=== PATIENT | female | born 1960 | race Caucasian/White ===

== ENCOUNTER 2019-01-19 20:06 | Observation (INO) ==
[2019-01-19] MEDS ORDERED: ASPIRIN 81 MG (BABY) CHEWABLE TABLET PO ONE (20:17)
[2019-01-19] MEDS ORDERED: Sodium Chloride 0.9% 1,000 ML PRIMARY IV ONE (20:17)
[2019-01-19 20:29] LABS: BASOPHILS # (AUTO) 0.06 10*3/UL; EOSINOPHILS % (AUTO) 3.5 % (0-8); Hemoglobin [HGB] 13.5 g/dL (12.0-16.0); LYMPHOCYTES # (AUTO) 2.19 10*3/uL; MEAN CORPUSCULAR HGB CONC 34.6 g/dL (33-37); MEAN CORPUSCULAR VOLUME 89.7 FL (81-99); MONOCYTES # (AUTO) 0.42 10*3/UL (0.3-0.8); MONOCYTES % (AUTO) 7.3 % (5-15); NEUTROPHILS # (AUTO) 2.87 10*3/UL; NEUTROPHILS % (AUTO) 49.9 % (50-80); RED BLOOD COUNT 4.35 10^6/uL (4.20-5.40)
[2019-01-19 20:37] LABS: PLATELET MORPHOLOGY COMMENT NORMAL MORPHOLOGY (NORM); RBC MORPHOLOGY COMMENT NORMAL MORPHOLOGY (NORM); WBC MORPHOLOGY COMMENT NORMAL MORPHOLOGY (NORM)
[2019-01-19 20:40] LABS: BLOOD UREA NITROGEN 16 mg/dL (7-22); BUN/CREATININE RATIO 26.66 (6-20); SERUM ALBUMIN 4.7 g/dL (3.5-4.8)
--- NOTE | 2019-01-19 20:52 | DI ---
EXAM: XR Chest, 1 View CLINICAL HISTORY: ITS.REASON Chest Pain Physician Notes: Tech Comments: TECHNIQUE: Frontal view of the chest. COMPARISON: No relevant prior studies available. FINDINGS: Lungs: No consolidation. Pleural space: Unremarkable. No pneumothorax. Heart: Mild cardiomegaly. Mediastinum: Unremarkable. Bones/joints: No acute fracture. IMPRESSION: No acute cardiopulmonary disease.
--- NOTE | 2019-01-19 22:05 | PDOC ---
HPI - History of Present Illness History of Present Illness: This is a very nice 58-year-old female who started having some chest pain at rest she still rates it 310 describes it more like pressure and not sharp no shortness of breath and no radiation she says it feels like stress. Past Medical History Medical History: No medical issues Tobacco Use: Former Smoker In the Past 12 Months, Have Used or Abuse Any of the Following Substance: None Alcohol Use: None Medication / Allergies Home Medications: Home Medications Medication Instructions Recorded Confirmed Type Multivitamins W-Minerals 1 ea PO DAILY 08/05/10 01/19/19 History [Multivitamin] Ibuprofen [Advil] 200 mg PO PRN PRN 11/28/11 01/19/19 History [place]-3 Fatty Acids/Fish Oil [Fish 1 ea PO DAILY cap 10/27/13 01/19/19 History Oil 1,000 mg Capsule] Calcium/Magnesium/Vit D3 [Calcium 1 tab PO QD tab 10/25/15 01/19/19 History 500 mg Tablet] fexofenadine 180 mg tablet 180 mg PO DAILY PRN tab 08/22/17 01/19/19 History coenzyme Q10 100 mg capsule 100 mg PO QDAY 03/04/18 01/19/19 History losartan 50 mg tablet 50 mg PO DAILY #90 tab 03/04/18 01/19/19 Rx lactobacillus combination no.9 4 4,000 mmu cells PO QDAY 06/06/18 01/19/19 History billion cell capsule azelastine 137 mcg (0.1 %) nasal 1 spray INASL BID #30 ml 12/04/18 01/19/19 Rx spray aerosol diazepam 5 mg tablet 5 mg PO ONCE #1 tab 12/04/18 01/19/19 Rx Allergies/Adverse Reactions: Allergies Allergy/AdvReac Type Severity Reaction Status Date / Time Sulfa (Sulfonamide Allergy Intermediate FLUSHING Verified 01/19/19 21:30 Antibiotics) sulfamethoxazole AdvReac Mild .SICK Verified 01/19/19 21:30 [From Bactrim] FEELING trimethoprim [From Bactrim] AdvReac Mild .SICK Verified 01/19/19 21:30 FEELING Review of Systems - Cardiovascular Cardiovascular: REPORTS: Chest Pain - Gastrointestinal Gastrointestinal / Abdominal: DENIES: Negative System Review, Nausea, Vomiting, Diarrhea, Constipation, Abdominal Pain, Bloody Stool, Poor Appetite, Heartburn, Regurgitation, Bloating, Lactose Intolerance, Melena, Bright Red Blood per Rectum, Other, See HPI Exam - General General Appearance: No Acute Distress, Cooperative - Respiratory Respiratory Exam: POSITIVE: Clear to Auscultation - Bilaterally, Breathing Non Labored, Normal To Percussion, Normal to Percussion and Palpation - Cardiovascular Cardiovascular Exam: POSITIVE: RRR, No Murmur, No Clicks, No Gallops, No Rubs, PMI Non-Displaced - GI/Abdominal GI/Abdominal Exam: POSITIVE: Normal Bowel Sounds, Non Tender, Non Distended, Soft, No Masses, No Hepatomegaly, No Splenomegaly, No Organomegaly - Extremities Extremities Exam: POSITIVE: No Clubbing Present, No Edema Present, No Cyanosis Present Results - Labs CBC and BMP: 01/19/19 20:18 01/19/19 20:18 Assessment and Plan - Patient Problems (1) Chest pain Current Visit: Yes Status: Acute Comment: Chest pain gave her sublingual nitroglycerin did not help much also gave half milligram of Ativan for her anxiety. Ordered chemical stress test if rules out Code(s): R07.9 - Chest pain, unspecified
[2019-01-19] MEDS ORDERED: CALCIUM CARBONATE 500 MG (TUMS) CHEWABLE TABLET PO PRN (22:23)
[2019-01-19] MEDS ORDERED: MORPHINE SULFATE 2 MG/1 ML IV PRN (22:23)
[2019-01-19] MEDS ORDERED: NITROGLYCERIN 0.4 MG SL TAB (BOTTLE OF 3) SL PRN (22:23)
[2019-01-19] MEDS ORDERED: LIDOCAINE W/ SODIUM BICARB 0.5 ML SYR SUBD PRN (22:23)
[2019-01-19 23:09] LABS: AMPHETAMINE SCREEN NEGATIVE (NEG); CANNABINOID SCREEN,URINE NEGATIVE (NEG); COCAINE SCREEN NEGATIVE (NEG); METHADONE URINE SCREEN NEGATIVE (NEG); METHAMPHETAMINES SCREEN,URINE NEGATIVE (NEG); OPIATE SCREEN,URINE NEGATIVE (NEG); URINE SAMPLE TYPE VOIDED SPECIMEN; URINE SPECIFIC GRAVITY - MAN 1.008
[2019-01-19] MEDS ORDERED: LORazepam 2 MG/1 ML VIAL IVP ONE (23:27)
[2019-01-20 02:44] LABS: BLOOD UREA NITROGEN 16 mg/dL (7-22); CHOL/HDL RATIO 5.43 RATIO (0-4.0); SERUM ALBUMIN 3.8 g/dL (3.5-4.8); SERUM CHOLESTEROL 174 mg/dL (120-200)
--- NOTE | 2019-01-20 05:10 | PDOC ---
Chest Pain HPI - General Chief Complaint: Chest Pain Stated Complaint: Chest Pain Date Seen by Provider: 01/19/19 Time Seen by Provider: 20:15 Source: Patient, Spouse Exam Limitations: POSITIVE: No limitations Treatment Prior to Arrival: REPORTS: None Nurse's Notes Reviewed & Considered: Yes - History of Present Illness Initial Comments: The patient is a 58-year-old female. She states that for the past 2 days she has been having episodes of "tightness "mid anterior thorax and just right of the sternum. She states the episodes last about 2 hours. She states the episodes are relieved by rest. She rates the intensity of the pain as 5 had a scale of 10. No shortness of breath. No cough or fevers. Patient did take 3 baby aspirin prior to coming to the emergency room. No known history of heart disease; she states she does have a history of hypertension. Body Location Affected: REPORTS: Chest Timing: REPORTS: Intermittent Duration: >24 hours (2 days) Severity: Moderate Persistent/Worse since (date): 01/26/19 Persistent/Worse since (time): 18:00 Context: REPORTS: Rest Quality: REPORTS: Aching, Pressure Radiation: REPORTS: None Associated Symptoms: DENIES: Nausea, Vomiting, Diaphoresis, Shortness of Breath, Hurts to Breathe, Palpitations, Productive Cough (blood), Productive Cough (sputum), Weakness, Dizziness Modifying Factors: improves with: None Reported Similar Symptoms Previously: No Recently seen/treated/hospitalized: No Any Prior Injuries Related to Current Complaint?: No - Patient Home Medications Home Medications: Home Medications Multivitamins W-Minerals [Multivitamin] 1 ea PO DAILY 08/05/10 Ibuprofen [Advil] 200 mg PO PRN PRN 11/28/11 [place]-3 Fatty Acids/Fish Oil [Fish Oil 1,000 mg Capsule] 1 ea PO DAILY cap 10/27/13 Calcium/Magnesium/Vit D3 [Calcium 500 mg Tablet] 1 tab PO QD tab 10/25/15 fexofenadine 180 mg tablet 180 mg PO DAILY PRN tab 08/22/17 coenzyme Q10 100 mg capsule 100 mg PO QDAY 03/04/18 losartan 50 mg tablet 50 mg PO DAILY #90 tab 03/04/18 lactobacillus combination no.9 4 billion cell capsule 4,000 mmu cells PO QDAY 06/06/18 azelastine 137 mcg (0.1 %) nasal spray aerosol 1 spray INASL BID #30 ml 12/04/18 diazepam 5 mg tablet 5 mg PO ONCE #1 tab 12/04/18 - Patient Allergies Allergies/Adverse Reactions: Allergies Allergy/AdvReac Type Severity Reaction Status Date / Time Sulfa (Sulfonamide Allergy Intermediate FLUSHING Verified 01/19/19 21:30 Antibiotics) sulfamethoxazole AdvReac Mild .SICK Verified 01/19/19 21:30 [From Bactrim] FEELING trimethoprim [From Bactrim] AdvReac Mild .SICK Verified 01/19/19 21:30 FEELING Past Medical History - heen HEENT History: Denies History, Dentures/Partials Additional HEENT History: partial but permanent Cardiovascular History: Hypertension, Other (please comment) Additional Cardiovasular History: murmur Respiratory History: Denies History Gastrointestinal History: Diverticulitis Genitourinary History: Denies History Endocrine History: Denies History Musculoskeletal History: Joint Pain Prosthesis or Implant: Yes (left uni) Additional Musculoskeletal History: right middle finger-numb and left is starting to have the same thing, scheduled for surgery in a month Neurological History: Denies History Blood Disorders: Denies History Psychiatric History: Denies History, Anxiety Disorders History of Sexually Transmitted Diseases: No Female Reproductive History: Denies History Obstetrical History: Denies History Cancer History: Denies History In Past Year Been Physically Harmed or Verbally Threatened: No History of MDRO: Unknown History of Other Communicable Diseases: No Tobacco Use: Former Smoker Alcohol Use: Occasionally In the Past 12 Months, Have Used or Abuse Any Substance: None Previous Surgical History: Yes Type / Date of Surgery: total hysterecomy. colonoscopy-several. LEFT PARTIAL KNEE Anesthesia Reactions: No Malignant Hyperthermia: No Significant Family History: No pertinent family hx Past Medical History Reviewed: Reviewed - No Changes ROS - Limitations ROS Limitations: No Limitations Constitution: REPORTS: Denies Symptoms Cardiovascular: REPORTS: Chest Pain Respiratory: REPORTS: Denies Resp Symptoms Neurological: REPORTS: Denies Neuro Symptoms Gastrointestinal: REPORTS: Denies GI Symptoms Endocrine: REPORTS: Denies Symptoms Musculoskeletal: REPORTS: Denies MS Symptoms Genitourinary: REPORTS: Denies Symptoms Eyes: REPORTS: Denies Symptoms ENT: REPORTS: Denies Symptoms Skin: REPORTS: Denies Skin Symptoms Lympathic: REPORTS: Denies Lympathic Symptoms Immunologic: POSITIVE: Denies Symptoms Psychiatric: POSITIVE: Denies Psych Symptoms Chest Pain PE - General Appearance General Appearance: REPORTS: Alert, Cooperative, No Acute Distress, No Evidence of Trauma - HEENT HEENT: POSITIVE: Head Inspection Nml, Eyes Inspection Nml, Ears Inspection Nml, Nose Inspection Nml, Oral/Dental Inspect. Nml, Pharynx Inspect. Nml, PERRL, EOMI - Neck Neck: REPORTS: Normal Inspection, No Carotid Bruit - Respiratory Respiratory: REPORTS: No Respiratory Distress, Breath Sounds Normal, Chest Non- Tender - Cardiovascular Cardiovascular: REPORTS: Regular Rate and Rhythm, Heart Sounds Normal, Equal Pulses, Strong Pulses, No Murmur, No Gallop, No Friction Rub, No JVD Peripheral Pulses: Radial (R): 2+, Radial (L): 2+ - Abdomen Abdomen: Soft: (All Quadrants), Normal Bowel Sounds: (All Quadrants), Denies Tenderness: (All Quadrants), No Splenomegaly: (All Quadrants), No Hepatomegaly: (All Quadrants), No Guarding: (All Quadrants), No Rebound: (All Quadrants), No Palpable Pulse: (All Quadrants), No Palpabale Mass: (All Quadrants), No Distention: (All Quadrants), No Rigidity: (All Quadrants) - Skin Skin: REPORTS: Intact, Normal For Race, Warm, Dry, No Rash - Extremities Extremity: Non-Tender: (All Extremities), Normal ROM: (All Extremities), Normal Inspection: (All Extremities) - Neurological / Psychological Neurological: POSITIVE: Affect Apporpriate, Oriented X3, aperture mask etcher Normal As Tested, Motor Normal, Sensation Normal Images - Complete Complete: 1 - Area described pain Chest Pain Progress - Results Reviewed by me Xrays/CTs/US Reviewed by me: Yes Discussed with Radiologist: Yes Radiology Findings: Chest x-ray shows "no acute cardio pulmonary disease " Lab Results Reviewed by Me: Yes CBC and BMP: 01/19/19 20:18 01/20/19 02:24 Lab Results:: Laboratory Results 01/19/19 01/19/19 01/19/19 20:18 20:18 20:18 WBC 5.75 RBC 4.35 Hgb 13.5 Hct 39.0 MCV 89.7 MCH 31.0 MCHC 34.6 RDW Std Deviation 40.9 RDW Coeff of Cisco 12.6 Plt Count 276 MPV 9.0 Immature Gran % (Auto) 0.2 Neut % (Auto) 49.9 L Lymph % (Auto) 38.1 [place] % (Auto) 7.3 Eos % (Auto) 3.5 Baso % (Auto) 1.0 Immature Gran # (Auto) 0.01 Neut # (Auto) 2.87 Lymph # (Auto) 2.19 [place] # (Auto) 0.42 Eos # (Auto) 0.20 Baso # (Auto) 0.06 WBC Morphology Comment Normal morphology Plt Morphology Comment Normal morphology RBC Morph Comment Normal morphology D-Dimer 0.34 Sodium 142 Potassium 4.1 Chloride 105 Carbon Dioxide 28 Anion Gap 9 BUN 16 Creatinine 0.6 Estimated GFR > 60 BUN/Creatinine Ratio 26.66 H Glucose 95 Calculated Osmolality 294.0 H Calcium 10.2 Total Bilirubin 0.2 L AST 30 ALT 16 Alkaline Phosphatase 73 CK-MB (CK-2) Troponin I Total Protein 8.5 H Albumin 4.7 Globulin 3.8 Albumin/Globulin Ratio 1.20 L 01/19/19 20:18 WBC RBC Hgb Hct MCV MCH MCHC RDW Std Deviation RDW Coeff of Cisco Plt Count MPV Immature Gran % (Auto) Neut % (Auto) Lymph % (Auto) [place] % (Auto) Eos % (Auto) Baso % (Auto) Immature Gran # (Auto) Neut # (Auto) Lymph # (Auto) [place] # (Auto) Eos # (Auto) Baso # (Auto) WBC Morphology Comment Plt Morphology Comment RBC Morph Comment D-Dimer Sodium Potassium Chloride Carbon Dioxide Anion Gap BUN Creatinine Estimated GFR BUN/Creatinine Ratio Glucose Calculated Osmolality Calcium Total Bilirubin AST ALT Alkaline Phosphatase CK-MB (CK-2) 1.97 Troponin I < 0.012 Total Protein Albumin Globulin Albumin/Globulin Ratio EKG Interpreted/Reviewed By Me:: Yes (normal) EKG Interpretation:: POSITIVE: Normal Sinus Rhythm, Normal Rate, Normal Intervals, Normal [place], Normal QRS, Normal ST/T - Patient's Progress Pain Medication Addressed: POSITIVE: Not Applicable School/Work Release Addressed: POSITIVE: Not Applicable Re-Examine Time: 21:30 Re-Examine Comment: Patient advised that her blood tests are normal as was her electrocardiogram and chest x-ray. She and her verbalized I'm not sure what the source of her chest pain is. She does feel better at this time. Options of treatment were discussed. [place] out of [place]. It was decided to admit the patient for. Of observation and further evaluation of her chest pain. Status: POSITIVE: Improved, Re-Examined Quality Measure Initiative: CP/AMI: POSITIVE: EKG, ASA - Consult Consult (If Yes, Name of Consulting MD & Time Called): Yes (Dr. Phillips, hospitalist [phone],) Consulting MD will see pt:: POSITIVE: [facility] Admit Counseled: POSITIVE: Patient, Family, RE: Lab Results, RE: Radiology Results, RE: DX, RE: Need for F/U Patient Care Time - Estimated PCT Patient Care Time (In Minutes): 45 Vital Signs - VS Reviewed Vital Signs Reviewed: Yes Discharge Clinical Impression: Chest pain Discharge Disposition: Admit to Inpatient Condition: Good Date Decision to Admit to Inpatient: 01/19/19 Time Decision to Admit to Inpatient: 21:40
--- NOTE | 2019-01-20 06:23 | EKG ---
[address] [address] Measurements Intervals [place] Rate: 75 P: 42 NV: 208 QRS: 9 QRSD: 97 T: 40 QT: 430 QTc: 460 Interpretive Statements SINUS RHYTHM WITH FIRST DEGREE AV BLOCK LOW QRS VOLTAGE IN PRECORDIAL LEADS [IN CHEST LEADS] Compared to ECG 11/02/2015 02:55:33 Low QRS voltage now present Sinus bradycardia no longer present Myocardial infarct finding no longer present Possible ischemia no longer present Electronically Signed On 01-20-19 13:38:47 MDT by Hay Caceres [id number]
[2019-01-20] MEDS: LOSARTAN 50 MG TABLET PO SCH (08:36)
--- NOTE | 2019-01-20 09:16 | PDOC(PROG) ---
Interval History: Patient still has a little chest pain may be 1 out of 10 which is improved compared to yesterday she did have a great night's sleep the 0.5 Ativan worked great for her. Objective : Data - Labs CBC and BMP: 01/19/19 20:18 01/20/19 02:24 Objective : Exam - Head Head Exam: Normal Inspection, Normocephalic, Atraumatic - Neck Neck Exam: Normal Inspection, Full ROM, No Tenderness - Respiratory Respiratory Exam: Clear to Auscultation - Bilaterally, Breathing Non Labored, Normal To Percussion, Normal to Percussion and Palpation - Cardiovascular Cardiovascular Exam: RRR, No Murmur, No Clicks, No Gallops, No Rubs, PMI Non- Displaced - GI/Abdominal GI/Abdominal Exam: Normal Bowel Sounds, Non Tender, Non Distended, Soft, No Masses, No Hepatomegaly, No Splenomegaly, No Organomegaly - Extremities Extremities Exam: No Clubbing Present, No Edema Present, No Cyanosis Present Assessment and Plan - Patient Problems (1) Chest pain Current Visit: Yes Status: Acute Comment: Negative troponins chest pain improved resting part of her stress test today tomorrow morning at 9:30 the stress portion Code(s): R07.9 - Chest pain, unspecified
[2019-01-20] MEDS ORDERED: LORazepam 2 MG/1 ML VIAL IVP SCH (18:00)
[2019-01-20] MEDS ORDERED: LORazepam 2 MG/1 ML VIAL IVP PRN (18:20)
[2019-01-20] MEDS ORDERED: Magnesium Sulfate 2gm (Premix) 2 GM/50 ML BAG IV ONE ×2 (21:51→21:52)
--- NOTE | 2019-01-20 22:10 | EKG ---
[address] [address] Measurements Intervals [place] Rate: 72 P: 53 ME: 206 QRS: 26 QRSD: 93 T: 51 QT: 443 QTc: 466 Interpretive Statements SINUS RHYTHM PROLONGED QT INTERVAL Compared to ECG 01/19/2019 20:13:10 Prolonged QT interval now present First degree AV block no longer present Electronically Signed On 01-21-19 08:18:21 MDT by Hay Caceres [id number]
[2019-01-21 08:14] VITALS: O2SAT 94
[2019-01-21 08:17] VITALS: RESP 20
--- NOTE | 2019-01-21 09:07 | DCSUMMARY ---
Hospitalization Summary Hospital Course: Final Discharge Diagnosis: Current Visit Problems Problem Status Onset Code Chest pain Acute R07.9 Chest pain Acute R07.9 Diagnostic Data, Laboratory Data, and Procedures of Signifigance: CBC and BMP 01/19/19 20:18 01/20/19 02:24 History and Physical pertinent to Admission: This very nice 58-year-old female comes in with chest pain EKGs were negative troponins were negative. Lexiscan stress test was no ischemia actually called Dr. Damian daley to explain the need the results since they seem there are contradictory in the area above He explained to me that he just has to put that in the report but the index for reversibility is 1 and he calls this Lexiscan stress test negative no ischemia or reversible defect. I instructed the patient to follow up with her primary care physician Course of Hospitalization: On the date of discharge, the patient was examined: Gen.: No acute distress, alert, nontoxic Heart: Regular rate and rhythm, no murmurs, clicks, gallops, or rubs Lungs: Clear to auscultation bilaterally, breathing is nonlabored Abdomen/GI: Normal tones on auscultation, soft, nontender, nondistended Musculoskeletal/extremities: No clubbing, cyanosis, or edema Vitals reviewed and are listed below Vital Signs (24 hrs) 01/20/19 11:00 01/20/19 11:17 01/20/19 11:18 Temperature 97.4 F Pulse Rate 72 Pulse Rate Pulse Oximeter 72 Respiratory Rate 17 Blood Pressure Right Arm 133/80 Pulse Ox 95 94 01/20/19 15:00 01/20/19 16:20 01/20/19 19:00 Temperature 98.7 F Pulse Rate 74 66 Pulse Rate Pulse Oximeter 69 Respiratory Rate 17 Blood Pressure Right Arm 135/80 Pulse Ox 93 93 97 01/20/19 20:21 01/20/19 21:50 01/20/19 23:00 Temperature 97.8 F 97.8 F Pulse Rate 72 Pulse Rate Pulse Oximeter 68 65 Respiratory Rate 16 20 Blood Pressure Right Arm 132/88 141/91 Pulse Ox 94 94 93 01/21/19 01:00 01/21/19 03:00 01/21/19 04:39 Temperature 97.2 F 97.6 F Pulse Rate 61 Pulse Rate Pulse Oximeter 72 63 Respiratory Rate 18 14 Blood Pressure Right Arm 117/78 118/77 Pulse Ox 93 93 93 01/21/19 07:00 01/21/19 08:15 Temperature 97.8 F Pulse Rate Pulse Rate Pulse Oximeter 63 67 Respiratory Rate 20 Blood Pressure Right Arm 114/64 Pulse Ox 94 94 Assessment and Plan: 1. As per discharge assessments above 2. Disposition: Home 3. Condition on discharge, stable and improved. 4. Diet: regular diet 5. Activities: resume normal activities 6. Follow-Up: 1. PCP 2. Follow Up with primary care physician 7. Medications at the Time of Discharge: Home Medications Medication Instructions Recorded Confirmed Type Multivitamins W-Minerals 1 ea PO DAILY 08/05/10 01/19/19 History [Multivitamin] Ibuprofen [Advil] 200 mg PO PRN PRN 11/28/11 01/19/19 History [place]-3 Fatty Acids/Fish Oil [Fish 1 ea PO DAILY cap 10/27/13 01/19/19 History Oil 1,000 mg Capsule] Calcium/Magnesium/Vit D3 [Calcium 1 tab PO QD tab 10/25/15 01/19/19 History 500 mg Tablet] fexofenadine 180 mg tablet 180 mg PO DAILY PRN tab 08/22/17 01/19/19 History coenzyme Q10 100 mg capsule 100 mg PO QDAY 03/04/18 01/19/19 History losartan 50 mg tablet 50 mg PO DAILY #90 tab 03/04/18 01/19/19 Rx lactobacillus combination no.9 4 4,000 mmu cells PO QDAY 06/06/18 01/19/19 History billion cell capsule azelastine 137 mcg (0.1 %) nasal 1 spray INASL BID #30 ml 12/04/18 01/19/19 Rx spray aerosol diazepam 5 mg tablet 5 mg PO ONCE #1 tab 12/04/18 01/19/19 Rx 8. Time, care, counseling and coordination of care for this discharge is greater than 30 minutes. Exam - Vitals Vital Signs: Vital Signs Temperature 97.8 F Temperature Source Temporal Artery Scan Pulse Rate [Pulse Oximeter] 67 Pulse Rate 61 Respiratory Rate 20 Blood Pressure [Right Arm] 114/64 Blood Pressure 130/87 Pulse Ox 94 Oxygen Delivery Method Room Air Height 5 ft 4 in Weight 144 lb Patient Problems - Patient Problem List (1) Chest pain Current Visit: Yes Status: Acute Code(s): R07.9 - Chest pain, unspecified Category: Medical
--- NOTE | 2019-01-21 10:12 | STRESSTEST ---
Interpretive Statements 58 yo female with chest pain neg troponins, no acute changes on this portion we will await pictures . [id number]
[2019-01-21] MEDS: LOSARTAN 50 MG TABLET PO SCH (10:24)
[2019-01-21 13:24] VITALS: TEMP 97.4
--- NOTE | 2019-01-21 13:52 | DI ---
2 DAY LEXISCAN STRESS & REST MYOCARDIAL PERFUSION SCANS, 01/20/2019 7:00 AM : Clinical History: Chest pain Previous Exam: None at this facility. The patient was stressed by Dr. Fowler The standard Lexiscan protocol was used. Please see the Doctor's report. At the designated time, 33.4 mCi of 99Tc-sestimibi was injected IV. Stress gated tomograms were acquired within one hour of the i njection. For the resting scans, 36.5 mCi was injected IV and resting gated tomograms were acquired in similar fashion. Stress scans were performed on January 20, 2019; the resting scans were performed on January 21, 2019. Quantitative and qualitative analyses were performed. Quantitative analysis was performed with the IN [facility] [id number] protocols. Very low dose limited CT scans of the chest are o btained through the level of the heart for attenuation correction of the gated stress and rest cardia c SPECT data. Non-attenuated and attenuated scans were processed for review, and the attenuated scans were used for final interpretation of this study. Review of the raw data images and quality control microbiology supervisor files indicate that these series of examinations ar e of excellent quality. Stress and rest left ventricular chamber sizes are normal. Stress and rest LV EF are 82 % and 75 %, respectively. There is a small predominantly fixed area with mild intensity reversibility involving the septal ape x. This was seen only on the attenuation corrected. On the attenuation corrected images, there is a p redominantly fixed defect involving the lateral, anterior and septal redman in a nonvascular distribut ion and worse on rest than on stress. There is normal wall motion and normal ejection fraction. Transient ischemic dilatation ratio is 0.7, with a normal range up to 1.22 for patients stre ssed with the Jerad protocol and up to 1.33 for patients stressed with the Lexiscan protocol. The very low dose CT scans through the level of the heart show no coronary artery calcifications. The re is no adenopathy or evidence of lung nodules. Reading: No evidence of ischemia. Normal wall motion and normal ejection fraction.
[2019-01-21 14:02] VITALS: BP 117/71
== END 2019-01-21 16:09 | disposition home or self-care (01) ==
LOC: MED/SURG 20:06 → ER 20:06 → MED/SURG 22:21
PROVIDERS: ADMIT Internal Medicine; ATTEND Internal Medicine